=== PATIENT | female | born 1935 | race Caucasian/White ===

== ENCOUNTER → 2019-03-22 | Outpatient (CLI) | payer MEDICARE | LOC: LAB SHORT 09:00 → LAB 09:00 | DX: R10.84 Generalized abdominal pain (principal); R30.0 Dysuria | CPT/HCPCS: 87086 ==

== ENCOUNTER → 2019-03-24 | Outpatient (CLI) | payer MEDICARE | LOC: LAB 16:00 → LAB SHORT 16:00 | DX: R10.9 Unspecified abdominal pain (principal); R30.0 Dysuria | CPT/HCPCS: 87086 ==

== ENCOUNTER 2020-07-10 13:59 | Emergency (ER) | payer MEDICARE ==
[~2020-07-10] VITALS: Ht 152.4 cm; Wt 86.2 kg
[2020-07-10 15:17] LABS: BASOPHILS ABSOLUTE AUTO 0.04 K/mm3 (0.00-0.23); BASOPHILS PERCENT AUTO 1 % (0-2); EOSINOPHILS ABSOLUTE AUTO 0.18 K/mm3 (0.00-0.68); EOSINOPHILS PERCENT AUTO 3 % (0-6); Hematocrit 41.1 % (33.0-51.0); Hemoglobin 13.9 g/dL (11.5-16.0); IMMATURE GRAN ABSOLUTE AUTO 0.01 K/mm3 (0.00-0.10); IMMATURE GRAN PERCENT AUTO 0 % (0-1); LYMPHOCYTES ABSOLUTE AUTO 2.52 K/mm3 (0.84-5.20); LYMPHOCYTES PERCENT AUTO 35 % (21-46); MONOCYTES ABSOLUTE AUTO 0.57 K/mm3 (0.16-1.47); MONOCYTES PERCENT AUTO 8 % (4-13); Mean Corpuscular HGB 31.9 pg (26.0-34.0); Mean Corpuscular HGB Conc 33.8 g/dL (31.5-36.5); Mean Corpuscular Volume 94 fL (80-100); Mean Platelet Volume 11.2 fL (9.1-12.4); NEUTROPHILS ABSOLUTE AUTO 3.92 K/mm3 (1.96-9.15); NEUTROPHILS PERCENT AUTO 54 % (41-73); Platelet Count 214 K/mm3 (150-400); RDW Coefficient Variation 12.5 % (11.7-14.2); RDW Standard Deviation 43.7 fL (35.1-46.3); Red Blood Cell Count 4.36 M/mm3 (3.80-5.20); White Blood Cell Count 7.24 K/mm3 (4.00-11.30)
[2020-07-10 15:33] LABS: Alanine Aminotransfer (ALT/SGP 26 U/L (12-78); Albumin/Globulin Ratio 1.3 (0.8-1.8); Alk Phos 83 U/L (50-136); Anion Gap 4 mmol/L (6-16); Aspartate Aminotrans (AST/SGOT 22 U/L (12-37); Bilirubin, Total 0.6 mg/dL (0.1-1.0); Blood Urea Nitrogen 29 mg/dL (8-24); CO2, Blood 25 mmol/L (21-32); Calcium, Blood 9.8 mg/dL (8.5-10.1); Chloride, Blood 112 mmol/L (98-108); Glomerular Filtration Rate 56 (60-); Glucose, Blood 93 mg/dL (70-99); Potassium, Blood 4.5 mmol/L (3.5-5.5); Sodium, Blood 141 mmol/L (136-145); Troponin I <0.015 ng/mL (0.000-0.040)
[2020-07-10] MEDS ORDERED: OXYB5 PO (18:02)
[2020-07-10] MEDS ORDERED: SPIRONOLACTONE25 MG PO (18:02)
[2020-07-10] MEDS ORDERED: Neurontin400 MG PO (18:02)
[2020-07-10] MEDS ORDERED: LATA.005SO BOTHEYES (18:03)
[2020-07-10] MEDS ORDERED: ATORVASTATIN CA20 MG PO (18:03)
[2020-07-10 18:06] LABS: Source, Urine Clean Catch
[2020-07-10 18:10] LABS: Appearance, Urine Clear (Clear); Bilirubin, Urine Neg (Neg); Blood, Urine Neg (Neg); Color, Urine Yellow (P-Yellow); Glucose Qualitative, Urine Neg (Neg); Ketones, Urine Neg (Neg); Leukocyte Esterase, Urine Neg (Neg); Nitrite, Urine Neg (Neg); Protein, Urine Neg (Neg); Specific Gravity, Urine 1.015 (1.003-1.022); Urobilinogen, Urine NORM (Normal)
== END 2020-07-10 19:03 | disposition home or self-care (01) ==
LOC: ER 13:59
PROVIDERS: Emergency Medicine; Physician Assistant
DX: R53.1 Weakness (principal); R06.02 Shortness of breath; I10 Essential (primary) hypertension; Z88.1 Allergy status to other antibiotic agents; Z79.899 Other long term (current) drug therapy
CPT/HCPCS: 36415; 80053; 81003; 84484; 85025; 93005; 93010; 99284-25

== ENCOUNTER 2021-02-04 11:41 | Day surgery (SDC) | payer MEDICARE ==
[~2021-02-04] VITALS: Ht 152.4 cm; Wt 79.7 kg
[~2021-02-04 11:41] MED LIST: ATORVASTATIN CA20 MG PO; LATA.005SO BOTHEYES; Neurontin400 MG PO; OXYB5 PO; SPIRONOLACTONE25 MG PO
[2021-02-04] MEDS ORDERED: FISH OIL 1,2001 EAC7 (11:58)
[2021-02-04] MEDS ORDERED: ASPI81CH (12:00)
[2021-02-04] MEDS ORDERED: IBUP800 (12:01)
[2021-02-04] MEDS ORDERED: CALCIUM 600 +1 EA11 (12:01)
== END 2021-02-04 13:31 | disposition home or self-care (01) ==
LOC: ORSCSDS 11:41
PROVIDERS: Internal Medicine Gastroenterology
PROC: 0DBH8ZX Excision of Cecum, Via Natural or Artificial Opening Endoscopic, Diagnostic (ICD-10-PCS; principal; 2021-02-04 13:15)
PROC: 0DBK8ZX Excision of Ascending Colon, Via Natural or Artificial Opening Endoscopic, Diagnostic (ICD-10-PCS; principal; 2021-02-04 13:15)
PROC: 0DBN8ZX Excision of Sigmoid Colon, Via Natural or Artificial Opening Endoscopic, Diagnostic (ICD-10-PCS; principal; 2021-02-04 13:15)
DX: Z12.11 Encounter for screening for malignant neoplasm of colon (principal); D12.0 Benign neoplasm of cecum; D12.2 Benign neoplasm of ascending colon; K57.30 Diverticulosis of large intestine without perforation or abscess without bleeding; K64.4 Residual hemorrhoidal skin tags; K64.8 Other hemorrhoids; I10 Essential (primary) hypertension; G47.33 Obstructive sleep apnea (adult) (pediatric); Z86.010 Personal history of colon polyps; Z80.0 Family history of malignant neoplasm of digestive organs
CPT/HCPCS: 88305; J2704; J7120

== ENCOUNTER 2024-09-26 10:53 | Day surgery (SDC) | payer OTHER ==
[~2024-09-26] VITALS: Ht 152.4 cm; Wt 81.3 kg
[~2024-09-26 10:53] MED LIST changes: +ASPI81CH; +CALCIUM 600 +1 EA11; +FISH OIL 1,2001 EAC7; +IBUP800; +Lactated Ringer's 1,000 ML IV ONE
[2024-09-26] MEDS ORDERED: TIMO.5OPSO (11:10)
[2024-09-26] MEDS ORDERED: GLUCOSAMINE 1500 MG (11:18)
[2024-09-26] MEDS ORDERED: ALLER TEC (11:19)
[2024-09-26] MEDS ORDERED: [UNRECOGNIZED DRUG - OTHER] (11:19)
[2024-09-26] MEDS ORDERED: MULVITA (11:20)
[2024-09-26] MEDS ORDERED: C COMPLEX1000 M1 (11:20)
[2024-09-26] MEDS ORDERED: RED YEAST RICE 600MG (11:21)
[2024-09-26] MEDS ORDERED: Lactated Ringer's 1,000 ML IV ONE (11:30)
[2024-09-26] MEDS ORDERED: propofoL 50 ML IV ONE (12:02)
[2024-09-26 13:17] VITALS: BP 139/66
== END 2024-09-26 13:25 | disposition home or self-care (01) ==
LOC: ORSCSDS 10:53
PROVIDERS: Internal Medicine Gastroenterology
PROC: 0DBK8ZX Excision of Ascending Colon, Via Natural or Artificial Opening Endoscopic, Diagnostic (ICD-10-PCS; principal; 2024-09-26 12:15)
DX: Z12.11 Encounter for screening for malignant neoplasm of colon (principal); Z86.0101 Personal history of adenomatous and serrated colon polyps; D12.2 Benign neoplasm of ascending colon; Z80.0 Family history of malignant neoplasm of digestive organs; K57.30 Diverticulosis of large intestine without perforation or abscess without bleeding; E66.9 Obesity, unspecified; Z68.36 Body mass index [BMI] 36.0-36.9, adult; I10 Essential (primary) hypertension; G47.33 Obstructive sleep apnea (adult) (pediatric); J45.909 Unspecified asthma, uncomplicated; Z79.899 Other long term (current) drug therapy
CPT/HCPCS: 88305; J2704; J7120

== ENCOUNTER 2025-08-23 09:03 | Emergency (ER) | payer OTHER ==
[~2025-08-23] VITALS: Ht 152.4 cm; Wt 81.7 kg
[~2025-08-23 09:03] MED LIST changes: +ALLER TEC; +C COMPLEX1000 M1; +GLUCOSAMINE 1500 MG; -Lactated Ringer's 1,000 ML IV ONE; +MULVITA; +RED YEAST RICE 600MG; +TIMO.5OPSO; +[UNRECOGNIZED DRUG - OTHER]
[2025-08-23 10:29] LABS: BASOPHILS ABSOLUTE AUTO 0.03 K/mm3 (0.00-0.23); BASOPHILS PERCENT AUTO 0 % (0-2); EOSINOPHILS ABSOLUTE AUTO 0.14 K/mm3 (0.00-0.68); EOSINOPHILS PERCENT AUTO 2 % (0-6); Hematocrit 42.6 % (33.0-51.0); Hemoglobin 14.4 g/dL (11.5-16.0); IMMATURE GRAN ABSOLUTE AUTO 0.01 K/mm3 (0.00-0.10); IMMATURE GRAN PERCENT AUTO 0 % (0-1); LYMPHOCYTES ABSOLUTE AUTO 2.12 K/mm3 (0.84-5.20); LYMPHOCYTES PERCENT AUTO 32 % (21-46); MONOCYTES ABSOLUTE AUTO 0.52 K/mm3 (0.16-1.47); MONOCYTES PERCENT AUTO 8 % (4-13); Mean Corpuscular HGB Conc 33.8 g/dL (31.5-36.5); Mean Corpuscular Volume 94 fL (80-100); NEUTROPHILS ABSOLUTE AUTO 3.89 K/mm3 (1.96-9.15); NEUTROPHILS PERCENT AUTO 58 % (41-73); NRBC ABSOLUTE 0.00 K/mm3 (0.00-0.02); NRBC Auto 0.0 /100 WBC (0.0-0.2); Platelet Count 235 K/mm3 (150-400); RDW Coefficient Variation 12.2 % (11.7-14.2); RDW Standard Deviation 42.5 fL (35.1-46.3)
[2025-08-23 11:03] LABS: Alanine Aminotransfer (ALT/SGP 25.0 U/L (12-78); Albumin, Blood 3.8 g/dL (3.4-5.0); Albumin/Globulin Ratio 1.2 (0.8-1.8); Anion Gap 4.0 mmol/L (3-11); Aspartate Aminotrans (AST/SGOT 18.0 U/L (12-37); Bilirubin, Total 0.7 mg/dL (0.1-1.0); Blood Urea Nitrogen 21.0 mg/dL (8-24); CO2, Blood 31.0 mmol/L (21-32); Calcium, Blood 10.2 mg/dL (8.5-10.1); Chloride, Blood 109.0 mmol/L (98-108); Creatinine, Blood 0.69 mg/dL (0.40-1.00); Globulin, Blood 3.2 g/dL (2.2-4.0); Glucose, Blood 94.0 mg/dL (70-99); Potassium, Blood 4.3 mmol/L (3.5-5.5); Sodium, Blood 140.0 mmol/L (136-145); Thyroid Stimulating Hormone 2.07 uIU/mL (0.360-4.800); Total Protein, Blood 7.0 g/dL (6.4-8.2)
[2025-08-23 11:45] LABS: CORONAVIRUS COVID-19 AG Negative (NEGATIVE)
[2025-08-23 12:11] LABS: Source, Urine Voided
[2025-08-23 12:19] LABS: Bilirubin, Urine Neg (Neg); Color, Urine Yellow (P-Yellow); Glucose Qualitative, Urine Neg (Neg); Ketones, Urine Neg (Neg); Leukocyte Esterase, Urine 2+ (Neg); Protein, Urine 1+ (Neg); Specific Gravity, Urine 1.015 (1.003-1.022); Urobilinogen, Urine NORM (Normal)
[2025-08-23 14:07] VITALS: BP 177/84
[2025-08-23] MEDS ORDERED: CEPH500 PO (14:08)
== END 2025-08-23 14:24 | disposition home or self-care (01) ==
LOC: ER 09:03
PROVIDERS: Emergency Medicine
DX: N39.0 Urinary tract infection, site not specified (principal); I10 Essential (primary) hypertension; Z88.8 Allergy status to other drugs, medicaments and biological substances; Z79.899 Other long term (current) drug therapy; Z90.710 Acquired absence of both cervix and uterus
CPT/HCPCS: 80053; 81001; 84443; 84484; 85025; 87077; 87086; 87186; 87428-QW; 93005; 93010; 99284-25